=== PATIENT | female | born 1990 | race Two or more races ===

== ENCOUNTER 2016-09-06 03:30 | Inpatient (IN) | payer SELFPAY ==
[~2016-09-06] VITALS: Ht 170.2 cm; Wt 94.3 kg
[2016-09-06] MEDS ORDERED: LACTATED RINGERS 1,000 ML IV SCH (03:59)
[2016-09-06] MEDS ORDERED: CARBOPROST 250 MCG/ML AMP IM PRN (04:00)
[2016-09-06] MEDS ORDERED: METHYLERGONOVINE 0.2 MG/ML AMP IM PRN ×2 (04:00→12:00)
[2016-09-06] MEDS ORDERED: OXYTOCIN 10 UNITS/ML VIAL IM SCH (04:00)
[2016-09-06 04:10] VITALS: BP 125/74
[2016-09-06] MEDS ORDERED: OXYTOCIN 20 UNITS/LR PREMIX 1,000 ML IV SCH (04:30)
[2016-09-06 04:34] LABS: APPEARANCE,URINE HAZY (CLEAR); BILIRUBIN,URINE NEGATIVE (NEGATIVE); BLOOD, URINE 3+ (NEGATIVE); COLOR,URINE YELLOW (YELLOW); LEUKOCYTE ESTERASE ,URINE NEGATIVE (NEGATIVE); NITRITE, URINE NEGATIVE (NEGATIVE); PH,URINE 6.5 (5.0-9.0); PROTEIN,URINE NEGATIVE (NEGATIVE); UGLUCOSE NEGATIVE (NEGATIVE); UROBILINOGEN,URINE 0.2 EU/dL (0.2 - 1)
[2016-09-06 04:52] LABS: BACTERIA,URINE 2+ /HPF (None Seen); RBC,URINE 20-50 /HPF (0-5)
[2016-09-06 05:15] LABS: EOSINOPHILS # (AUTO) 0.1 K/uL (0-0.4); MONOCYTES # (AUTO) 0.3 K/uL (0.8-1.0)
[2016-09-06 05:22] LABS: BASOPHILS % (AUTO) 0.6 % (0.0-2.0); EOSINOPHILS % (AUTO) 0.9 % (0.0-4.0); HEMATOCRIT 32.3 % (36-48); HEMOGLOBIN 10.5 g/dL (12.0-16.0); LYMPHOCYTES # (AUTO) 2.2 K/uL (2.5-16.5); LYMPHOCYTES % (AUTO) 26.6 % (20.5-51.1); MEAN CORPUSCULAR HEMOGLOBIN 26 pg (27-31); MEAN CORPUSCULAR HGB CONC 32 g/dL (33-37); MEAN CORPUSCULAR VOLUME 81 fL (80-94); MONOCYTES % (AUTO) 4.3 % (1.7-9.3); NEUTROPHILS # (AUTO) 5.5 K/uL (1.8-7.7); NEUTROPHILS % (AUTO) 67.6 % (42.2-75.2); PLATELET COUNT (AUTO) 158 K/uL (140-450); RED BLOOD CELL COUNT(AUTO) 3.97 MIL/uL (4.20-5.40); RED CELL DISTRIBUTION WIDTH 14.2 % (11.6-13.7); WHITE BLOOD COUNT (AUTO) 8.1 K/uL (4.8-10.8)
[2016-09-06] MEDS ORDERED: ROPIVACAINE 0.2%/NS PREMIX 250 ML EPI ONE (05:52)
[2016-09-06] MEDS ORDERED: fentaNYL 0.05 MG/ML VIAL ONE (06:13)
[2016-09-06] MEDS ORDERED: OXYTOCIN 20 UNITS/LR PREMIX 1,000 ML IV ONE (09:29)
--- NOTE | 2016-09-06 11:38 | NUR ---
DR. DENNY GALVAN REQUESTING RESPIRATORY THERAPIST STANDBY
[2016-09-06] MEDS ORDERED: METHYLERGONOVINE 0.2 MG/ML AMP ONE (11:53)
[2016-09-06] MEDS ORDERED: oxyCODONE/APAP 5/325 MG 1 TAB TAB PO PRN (12:00)
[2016-09-06] MEDS ORDERED: MEASLES, MUMPS, AND RUBELLA 1 VIAL SQVAC PRN (12:00)
[2016-09-06] MEDS ORDERED: HYDROcodone/APAP 5/325 MG 1 TAB TAB PO PRN (12:00)
[2016-09-06] MEDS ORDERED: BENZOCAINE/MENTHOL 20%-0.5% 60 GM CAN TP PRN (12:00)
[2016-09-06] MEDS ORDERED: OXYTOCIN 10 UNITS/ML VIAL IM PRN (12:00)
[2016-09-06] MEDS ORDERED: TEMAZEPAM 15 MG CAP PO PRN (12:00)
[2016-09-06] MEDS ORDERED: IBUPROFEN 800 MG TAB PO PRN (12:00)
[2016-09-06] MEDS ORDERED: DOCUSATE SOD/SENNA 50/8.6 MG 1 TAB PO SCH (21:00)
[2016-09-07 05:30] LABS: HEMATOCRIT 30.5 % (36-48); HEMOGLOBIN 9.7 g/dL (12.0-16.0)
[2016-09-07] MEDS ORDERED: NACL 0.9% 1,000 ML IV SCH (08:55)
[2016-09-07] MEDS ORDERED: NACL 0.9% 1,000 ML IV ONE (09:00)
--- NOTE | 2016-09-07 09:49 | NUR ---
PATIENT HAS BEEN SCREENED AND CATEGORIZED LOW NUTRITION RISK. PATIENT WILL BE SEEN WITHIN 7 DAYS OF ADMISSION. 09/12/[address]
[2016-09-08] MEDS ORDERED: IBUP-2213 PO (10:38)
== END 2016-09-08 12:20 | disposition home or self-care (01) | DRG 775 ==
LOC: EDBD 03:30 → MLD 03:30 → MFCC 15:27
PROVIDERS: ADMIT Obstetrics & Gynecology; ATTEND Obstetrics & Gynecology
PROC: 10D07Z6 Extraction of Products of Conception, Vacuum, Via Natural or Artificial Opening (ICD-10-PCS; principal; 2016-09-06)
PROC: 3E0S3CZ (ICD-10-PCS; 2016-09-06)
PROC: 00HU33Z Insertion of Infusion Device into Spinal Canal, Percutaneous Approach (ICD-10-PCS; 2016-09-06)
PROC: 30233S1 Transfusion of Nonautologous Globulin into Peripheral Vein, Percutaneous Approach (ICD-10-PCS; 2016-09-06)
DX: O80 Encounter for full-term uncomplicated delivery (principal); Z3A.40 40 weeks gestation of pregnancy; Z37.0 Single live birth; Z28.21 Immunization not carried out because of patient refusal
CPT/HCPCS: 36415; 51702; 81001; 85018; 85025; 86592; 86850; 86870; 86886; 86900; 86901; 87086; J2210; J2590; J2790; J2795; J3010; J7030; J7120